=== PATIENT | female | born 1955 | race Caucasian/White ===

== ENCOUNTER 2024-02-25 04:21 | Day surgery (SDC) | payer BC, OTHER ==
[2024-02-23 11:16] VITALS: BMI 33.3
[2024-02-25 08:45] VITALS: TEMP 97.8
[2024-02-25 08:48] VITALS: BP 140/59; PULSE 73; RESP 14
== END 2024-02-25 08:48 | disposition home or self-care (01) ==
LOC: JASU-ENDO 04:21
PROVIDERS: ATTEND Internal Medicine Gastroenterology
PROC: 0DBK8ZX Excision of Ascending Colon, Via Natural or Artificial Opening Endoscopic, Diagnostic (ICD-10-PCS; principal; 2024-02-25 08:00)
DX: Z12.11 Encounter for screening for malignant neoplasm of colon (principal); D12.2 Benign neoplasm of ascending colon; Z86.010 Personal history of colon polyps; I10 Essential (primary) hypertension
CPT/HCPCS: 88305-TC